=== PATIENT | male | born 1975 | race Caucasian/White ===

== ENCOUNTER 2017-06-22 03:23 | Emergency (ER) | payer BC ==
--- NOTE | 2017-06-22 03:38 | EDM.PDOC ---
ED HPI GENERAL MEDICAL PROBLEM - General Stated Complaint: FALL AND HURT RT SHOULDER Time Seen by Provider: 06/22/17 03:23 Source of Information: Reports: Patient History Limitations: Reports: No Limitations - History of Present Illness INITIAL COMMENTS - FREE TEXT/NARRATIVE: c/o R shoulder pain pt ate casino, bumped into a friend, fell, not able to give details, thinks he "landed on my shoulder" pain at proximal humerus no previous shoulder injury or dislocation works construction - Related Data Allergies Allergy/AdvReac Type Severity Reaction Status Date / Time clindamycin Allergy Rash Verified 06/22/17 03:36 Home Meds: Home Meds NK [No Known Home Meds] 06/22/17 [History] ED ROS GENERAL - Review of Systems Review Of Systems: See Below Constitutional: Reports: No Symptoms HEENT: Reports: No Symptoms Respiratory: Reports: No Symptoms Cardiovascular: Reports: No Symptoms Endocrine: Reports: No Symptoms GI/Abdominal: Reports: No Symptoms : Reports: No Symptoms Musculoskeletal: Reports: Joint Pain Skin: Reports: No Symptoms Neurological: Reports: No Symptoms Psychiatric: Reports: No Symptoms Hematologic/Lymphatic: Reports: No Symptoms Immunologic: Reports: No Symptoms ED EXAM, GENERAL - Physical Exam Exam: See Below Exam Limited By: Other (sullen, limited answers to questions) General Appearance: Alert, WD/WN, Mild Distress, Other (muscular) Head: Atraumatic, Normocephalic Neck: Normal Inspection Respiratory/Chest: No Respiratory Distress, Lungs Clear Cardiovascular: Regular Rate, Rhythm Extremities: Other (RUE hanging at R side, elbow extended, neuro intact, radial and ulnar pulse present and somewhat diminished, no localized tender at AC joint or GH joint or humerus, bulge at proximal humerus) Course - Vital Signs Last Recorded V/S: Last Vital Signs Temp 36.6 C 06/22/17 03:25 Pulse 78 06/22/17 03:25 Resp 18 06/22/17 03:25 BP Pulse Ox 98 06/22/17 03:25 - Orders/Labs/Meds Orders: Active Orders 24 hr Category Date Time Status Shoulder Comp Rt [CR] Stat Exams 06/22/17 03:28 Ordered Shoulder Comp Rt [CR] Stat Exams 06/22/17 04:05 Ordered Shoulder Comp Rt [CR] Stat Exams 06/22/17 04:44 Ordered Meds: Medications Discontinued Medications Generic Name Dose Route Start Last Admin Trade Name Elizabeth PRN Reason Stop Dose Admin Hydromorphone HCl 1 mg 06/22/17 03:41 06/22/17 04:00 Dilaudid IVPUSH 06/22/17 03:42 1 mg ONETIME ONE Administration Lorazepam 1 mg 06/22/17 03:40 06/22/17 04:00 Ativan IVPUSH 06/22/17 03:41 1 mg ONETIME ONE Administration - Re-Assessments/Exams Free Text/Narrative Re-Assessment/Exam: 06/22/17 04:45 on first attempt at reduction, using traction and countertraction with 2 sheets and external rotation there was an audible thunk and shift of the humeral head with flexion to 180 degrees, however postreduction film showed continued dislocation on 2nd attempt at reduction, using the same technique there was again an audible thunk and shift of the humeral head twice, once with arm at 15 degrees abduction and again at 75 degrees abudction, however postreduction film still showed dislocation on 3rd attempt, there were actually 4 thunks as the arm was externally rotated and abducted to 90 degrees, however there was still a drop off below the acromion with loss of rounding, with the Spaso technique and the extended arm being lifted toward the ceiling and external rotation on the arm there was again a shift and audible clunk. The postreduction film now showed normal alignment. Departure - Departure Time of Disposition: 04:50 Disposition: Home, Self-Care 01 Condition: Good Clinical Impression: Shoulder dislocation Qualifiers: Encounter type: initial encounter Laterality: right Qualified Code(s): S43.004A - Unspecified dislocation of right shoulder joint, initial encounter - Discharge Information Referrals: PCP,None [Primary Care Provider] - Additional Instructions: Keep arm in the sling and swathe including in bed until you are seen by orthopedics. No work or using the right arm until you are cleared by orthopedics. In some cases, the orthopedic surgeon needs to do surgery to repair the injury to the joint capsule. You will want to discuss this with him. For pain, which should be minimal, take ibuprofen 200 mg 4 tabs 3 times a day for one week. May take with food. See orthopedic surgeon in 3 days. Call later today to make an appointment. Return to ED if you are having additional difficulties. Call your Physician or Return to Emergency Department if: * Your condition worsens in any way. * You have pain that is not controlled with medications. - My Orders Last 24 Hours: My Active Orders 06/22/17 03:28 Shoulder Comp Rt [CR] Stat 06/22/17 04:05 Shoulder Comp Rt [CR] Stat 06/22/17 04:44 Shoulder Comp Rt [CR] Stat - Assessment/Plan Last 24 Hours: My Active Orders 06/22/17 03:28 Shoulder Comp Rt [CR] Stat 06/22/17 04:05 Shoulder Comp Rt [CR] Stat 06/22/17 04:44 Shoulder Comp Rt [CR] Stat
[2017-06-22] MEDS ORDERED: LORazepam 2 MG/ML MDV IVPUSH ONE (03:40)
[2017-06-22] MEDS ORDERED: HYDROmorphone 2 MG/ML SDV IVPUSH ONE (03:41)
--- NOTE | 2017-06-22 10:28 | CR ---
INDICATION: Fall, shoulder pain. RIGHT SHOULDER: Two views of the right shoulder, both frontal, revealed an inferior dislocation of the humeral head from the glenoid fossa, most likely an anterior/inferior dislocation. Minimal degenerative change is noted at the AC joint. A definite fracture site was not identified. IMPRESSION: Glenohumeral dislocation. MTDD
--- NOTE | 2017-06-22 10:29 | CR ---
INDICATION: Post reduction right shoulder dislocation. RIGHT SHOULDER: Three views of the right shoulder were obtained, labeled #1, #2 , and #3. The first two continue to show an inferior dislocation of the humerus with respect to the glenoid fossa. The third post reduction showed an appearance of normal positioning of the glenohumeral joint in this single projection. A lateral view would be necessary to confirm correct position roentgenographically. Mild degenerative changes are noted at the AC joint. MTDD
== END 2017-06-22 06:30 | disposition home or self-care (01) ==
LOC: FB.ED 03:23
DX: S43.004A Unspecified dislocation of right shoulder joint, initial encounter (principal); W03.XXXA Other fall on same level due to collision with another person, initial encounter
CPT/HCPCS: 23650; 73030; 96374; 96375; 99284; J1170; J2060